=== PATIENT | female | born 1965 | race Caucasian/White ===

== ENCOUNTER 2017-11-03 01:01 | Emergency (ER) | payer OTHER ==
[~2017-11-03] VITALS: Ht 167.6 cm; Wt 106.3 kg
[2017-11-03] MEDS ORDERED: HYDROcodone/APAP 5/325 TABLET ONE (01:28)
[2017-11-03] MEDS ORDERED: HYDROcodone/APAP 5/325 TABLET PO ONE (01:30)
[2017-11-03 03:28] VITALS: BP 137/86
== END 2017-11-03 03:32 | disposition home or self-care (01) ==
LOC: ED 01:39
DX: G89.11 Acute pain due to trauma (principal); M25.461 Effusion, right knee; M17.11 Unilateral primary osteoarthritis, right knee; X50.1XXA Overexertion from prolonged static or awkward postures, initial encounter; Y93.89 Activity, other specified; Y92.009 Unspecified place in unspecified non-institutional (private) residence as the place of occurrence of the external cause; Y99.8 Other external cause status
CPT/HCPCS: 29505; 99284; 99285

== ENCOUNTER 2017-12-10 17:23 | Emergency (ER) | payer OTHER ==
[~2017-12-10] VITALS: Ht 167.6 cm; Wt 104.8 kg
[2017-12-10 17:31] VITALS: BP 123/85
== END 2017-12-10 20:25 | disposition home or self-care (01) ==
LOC: ED 20:15
DX: L03.114 Cellulitis of left upper limb (principal); I80.8 Phlebitis and thrombophlebitis of other sites
CPT/HCPCS: 99284